=== PATIENT | female | born 1960 | race Caucasian/White ===

== ENCOUNTER 2023-10-06 10:38 | Emergency (ER) | payer OTHER, SELFPAY ==
[2023-10-06 11:18] VITALS: BP 136/94; PULSE 108; RESP 18; TEMP 36.3; O2SAT 96
--- NOTE | 2023-10-06 11:44 | ED.PSYCH ---
HPI - Psych General Chief Complaint: Psychiatric Symptoms <Fabiola Ojeda PA-C - Last Filed: 10/08/23 17:14> Stated Complaint: psych eval <Fabiola Ojeda PA-C - Last Filed: 10/08/23 17:14> Time Seen by Provider: 10/06/23 11:35 <Fabiola Ojeda PA-C - Last Filed: 10/08/23 17:14> Focused HPI: This is a 63-year-old female that presents to the emergency department for psychiatric evaluation. Patient had stolen a car and was pulled over by the police. She was acting erratically which prompted them to bring her in for evaluation. She did admit to using methamphetamines a couple of days prior. Reports history of anxiety and depression. She has no thoughts of harming herself. Although, has expressed thoughts of harming others. GENERAL: Disheveled, well-nourished, and in no acute distress. HEAD: Normocephalic, atraumatic. CHEST: Clear to auscultation. ?No respiratory distress. HEART: Regular rate and rhythm.? NEURO: ?Alert and oriented x3. Patient screened in triage and initial orders placed.? ?Additional care and disposition to be based upon?diagnostic testing and treatment. <Fabiola Ojeda PA-C - Last Filed: 10/08/23 17:14> Source: patient <Fabiola Ojeda PA-C - Last Filed: 10/08/23 17:14> Mode of arrival: other (with police) <Fabiola Ojeda PA-C - Last Filed: 10/08/23 17:14> Limitations: altered mental status <Fabiola Ojeda PA-C - Last Filed: 10/08/23 17:14> History of Present Illness HPI Narrative: 63-year-old female presenting in police custody for psychiatric evaluation. Patient was found in a stolen car and was behaving erratically so she was brought to the ER. Patient does admit to using meth. On my evaluation, she denies HI or SI. She denies any complaints. States that she normally lives with her daughter who lives in [place]. <Gabriela Orta MD - Last Filed: 10/11/23 18:04> Related Data Allergies/Adverse Reactions: Allergies Allergy/AdvReac Type Severity Reaction Status Date / Time No Known Allergies Allergy Verified 10/06/23 20:12 <Fabiola Ojeda PA-C - Last Filed: 10/08/23 17:14> Review of Systems Review of Systems: All systems reviewed & are unremarkable except as noted in HPI and below <Gabriela Orta MD - Last Filed: 10/11/23 18:04> FOR[facility], [facility] Past Medical History Medical History: Medical History (Updated 10/11/23 @ 18:04 by Gabriela Orta MD) History of depression <Fabiola Ojeda PA-C - Last Filed: 10/08/23 17:14> Social History Social History: Social History Substance use type: amphetamines <Fabiola Ojeda PA-C - Last Filed: 10/08/23 17:14> Exam Narrative: GENERAL: disheveled, nontoxic, no acute distress HEAD: Normocephalic, atraumatic. EYES: PERRLA and EOMI. ENT: grossly unremarkable NECK: Supple. CHEST: No respiratory distress. HEART: Regular rate and rhythm. EXTREMITIES: Normal range of motion. SKIN: Warm, dry, no rash. NEURO: Alert and oriented x3. PSYCH: no SI or HI <Gabriela Orta MD - Last Filed: 10/11/23 18:04> Course Vital Signs Vital signs: Vital Signs Temperature 97.4 F L 10/06/23 11:18 Pulse Rate 108 H 10/06/23 11:18 Respiratory Rate 18 10/06/23 11:18 Blood Pressure 136/94 H 10/06/23 11:18 Pulse Oximetry 96 10/06/23 11:18 Temperature 98.3 F 10/07/23 00:26 Pulse Rate 87 10/07/23 00:57 Respiratory Rate 16 10/07/23 00:57 Blood Pressure 98/62 L 10/07/23 00:57 Pulse Oximetry 98 10/07/23 00:57 <Fabiola Ojeda PA-C - Last Filed: 10/08/23 17:14> Vital Signs Temperature 97.4 F L 10/06/23 11:18 Pulse Rate 108 H 10/06/23 11:18 Respiratory Rate 18 10/06/23 11:18 Blood Pressure 136/94 H 10/06/23 11:18 Pulse Oximetry 96 10/06/23 11:18 Temperature 98.3 F 10/07/23 00:26 Pulse Rate 87 10/07/23 00:57 Respiratory Rate 16
[2023-10-06 13:00] LABS: Basophils Percent Auto 0.3 % (0.2-1.2); Eosinophils Percent Auto 0.4 % (0-4.4); Hematocrit 41.4 % (37.0-47.0); Hemoglobin 13.2 g/dL (12.0-15.0); Immature Granulocyte Absolute 0.02 K/mm3 (0.00-0.031); Immature Granulocyte Percent A 0.2 % (0-0.5); Lymphocytes Absolute Auto 2.01 K/mm3 (0.9-3.2); Lymphocytes Percent Auto 22.3 % (18.3-44.2); Mean Corpuscular HGB Conc 31.9 g/dl (32-36); Mean Corpuscular Hemoglobin 30.3 pg (26-34); Mean Corpuscular Volume 95.2 fl (80-100); Monocytes Absolute Auto 0.5 K/mm3 (0.1-0.6); Monocytes Percent Auto 5.8 % (2.6-8.5); Neutrophils Absolute Auto 6.4 K/mm3 (1.3-6.7); Platelet Count Result 373 k/mm3 (150-375); Red Blood Count 4.35 M/mm3 (4.2-5.4); Red Cell Distribution Width 13.9 % (11.5-14.5)
[2023-10-06 13:13] LABS: Alanine Aminotransferase 35 U/L (6-35); Albumin Level 4.2 g/dL (3.5-5.1); Alkaline Phosphatase 92 U/L (38-126); Anion Gap 12 mmol/L (8-16); Aspartate Amino Transferase 65 U/L (14-36); Bilirubin,Total 0.7 mg/dL (0.2-1.3); Blood Urea Nitrogen 15 mg/dL (7-17); Calcium 9.7 mg/dL (8.4-10.2); Carbon Dioxide 20 mmol/L (22-30); Chloride 107 mmol/L (98-107); Estimated CRCL calculation 51 ml/min; Estimated Glomerular Filt Rate > 60; Glucose 67 mg/dL (65-110); Potassium 3.7 mmol/L (3.4-5.0); Sodium 139 mmol/L (137-145)
[2023-10-06 13:14] LABS: Acetaminophen < 10 ug/mL (10-30); Salicylate < 1.0 mg/dL (2-20)
[2023-10-06 13:14] LABS: Ethanol < 10 mg/dL (<10)
--- NOTE | 2023-10-06 13:26 | PC.NURSE ---
Assisted pt to bathroom for urine sample. Pt stated she forgot to go in sample cup.
[2023-10-06 13:57] LABS: Thyroid Stimulating Hormone Reflex 0.404 uIU/mL (0.465-4.68)
[2023-10-06 14:41] LABS: Influenza A QL RT-PCR Negative (Negative); Influenza B QL RT-PCR Negative (Negative); RSV RNA, RT-PCR Negative (Negative); SARS-CoV-2 RNA PCR Negative (Negative)
[2023-10-06 14:50] VITALS: BP 111/70; PULSE 72; RESP 17; TEMP 36.6; O2SAT 98
[2023-10-06 15:18] LABS: Appearance Urine Clear (Clear); Bacteria Urine None Seen /hpf; Bilirubin Urine Negative (Negative); Blood Urine Negative (Negative); Color Urine Yellow (Yellow); Glucose Urine UA Negative (Negative); Ketones Urine 4+ mg/dL (Negative); Leukocyte Esterase Ur Negative LEU/UL (Negative); Nitrate Urine Negative (Negative); Non Pathogenic Casts 0-2; Protein Urine 1+ mg/dL (Negative); RBC Urine 0-2 /hpf (0-2); Specific Grav Ur 1.029 (1.001-1.035); Squamous Epithelial Cell Urine Occasional /hpf (Few); WBC Urine 0-5 /hpf
[2023-10-06 15:22] LABS: Add Urine Microscopic? YES
[2023-10-06 15:41] LABS: Barbiturate Screen Urine Negative (Negative); Benzodiazepines Screen Urine Negative (Negative)
[2023-10-06 15:43] LABS: Cannabinoid Screen Urine Positive (Negative); Cocaine Screen Urine Positive (Negative); Methadone Screen Urine Negative (Negative); Opiate Screen Urine Negative (Negative); Phencyclidine Screen Urine Negative (Negative)
[2023-10-06 16:02] LABS: Amphetamine Screen Urine Positive (Negative)
[2023-10-06 16:07] LABS: Total Triiodothyronine (T3) 1.69 NG/ML (0.97-1.69)
--- NOTE | 2023-10-06 20:13 | PC.NURSE ---
Stephani with [facility] called for triage information. She states she will call back after speaking with their physician
--- NOTE | 2023-10-06 20:26 | PC.NURSE ---
trade markerEusebia at [facility] called for triage information to present to provider.
--- NOTE | 2023-10-06 20:33 | PC.NURSE ---
Stephani at [facility] called with acceptance to facility through Dr. Arizmendi. Asked to be called at [phone] with ETA
--- NOTE | 2023-10-06 20:46 | PC.NURSE ---
Sasha with [facility] called for update on bed transfer status
--- NOTE | 2023-10-06 20:50 | PC.NURSE ---
Eusebia [facility] called to inform that pt was not accepted
[2023-10-07 00:26] VITALS: BP 97/83; PULSE 68; RESP 16; TEMP 36.8; O2SAT 99
[2023-10-07 00:57] VITALS: BP 98/62; PULSE 87; RESP 16; O2SAT 98
== END 2023-10-07 00:59 ==
PROVIDERS: Physician Assistant; Emergency Provider Emergency Medicine
DX: F99 Mental disorder, not otherwise specified (principal); Z20.822 Contact with and (suspected) exposure to COVID-19; F41.9 Anxiety disorder, unspecified; F32.A Depression, unspecified
CPT/HCPCS: 36415; 80053; 80307; 81001; 84439; 84443; 84480; 85025; 87637; 99285